=== PATIENT | male | born 1980 | race Caucasian/White ===

== ENCOUNTER 2016-11-10 19:12 | Emergency (ER) | payer BC ==
[2016-11-10 19:35] VITALS: BP 126/78
--- NOTE | 2016-11-10 19:51 | EDM.PDOC ---
ED HPI GENERAL MEDICAL PROBLEM - General Chief Complaint: Headache Stated Complaint: headaches Time Seen by Provider: 11/10/16 19:36 Source of Information: Reports: Patient, Family (spouse) History Limitations: Reports: No Limitations - History of Present Illness INITIAL COMMENTS - FREE TEXT/NARRATIVE: 35-year-old male presents to the ED with intermittent bouts of severe pain at the base of the skull more so on the left on the right off and on for the last 2 days. No known head or neck trauma. He has had similar type events before but never quite to this severity. Will radiate up from the base of the skull along the temporal aspects of both sides of his head causing a headache pressure discomfort. No associated nausea or vomiting. No prongs with his balance visual acuity etc. Onset: Sudden Onset Date: 11/08/16 Duration: Day(s): (Intermittent problems for the last 2 days.) Location: Reports: Head (Headache), Neck Quality: Reports: Ache, Pressure, Throbbing Severity: Moderate Improves with: Reports: Rest (Not moving) Worsens with: Reports: Movement (Certain movements particularly if he has to hold his breath or reef on something.) Context: Denies: Activity, Exercise, Lifting, Sick Contact, Trauma, Other Associated Symptoms: Reports: No Other Symptoms, Confusion, Headaches. 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: Reports: NSAIDS (Motrin), Other (see below) Other Treatments IN SCHOOL SUSPENSION AIDE: ibuprofen 1600 posterior head Pain Score (Numeric/FACES): 3 - Related Data Allergies Allergy/AdvReac Type Severity Reaction Status Date / Time adhesive tape Allergy Rash Verified 11/10/16 19:37 celecoxib Allergy Dizziness Verified 11/10/16 19:37 cephalexin Allergy Other Verified 11/10/16 19:37 lisinopril Allergy throat Verified 11/10/16 19:37 swelling rhubarb Allergy Nausea and Verified 11/10/16 19:37 Vomiting lotions Allergy Other Uncoded 11/10/16 19:37 Home Meds: Home Meds Cholecalciferol (Vitamin D3) [Vitamin D3] 1,000 unit PO DAILY 11/10/16 [History] Diclofenac Sodium [Voltaren] 50 mg PO TIDMEALS #21 tab.ec 11/10/16 [Rx] Metoprolol Succinate [Toprol XL] 100 mg PO DAILY 11/10/16 [History] Multivitamin [Daily Mulugeta] 1 each PO DAILY 11/10/16 [History] Polyethylene Glycol [Polyox Wsr-301] 1 gm PO DAILY 11/10/16 [History] Ranitidine [Zantac] 300 mg PO BID 11/10/16 [History] metroNIDAZOLE [Metronidazole] 45 gm TP BID PRN 11/10/16 [History] oxyCODONE HCl/Acetaminophen [Percocet 5-325 mg Tablet] 1 - 2 each PO Q4H PRN # 16 tablet 11/10/16 [Rx] predniSONE [Deltasone] 20 mg PO BID #10 tablet 11/10/16 [Rx] Past Medical History Cardiovascular History: Reports: Hypertension Gastrointestinal History: Reports: Gastritis, GERD Neurological History: Reports: Other (See Below) (Intermittent problems with headaches.) Endocrine/Metabolic History: Reports: Obesity/BMI 30+ Social & Family History - Tobacco Use Smoking Status *Q: Never Smoker - Recreational Drug Use Recreational Drug Use: No - Living Situation & Occupation Living situation: Reports: Occupation: Employed [employer] GENER[employer] - Review of Systems Review Of Systems: See Below Constitutional: Denies: Fever, Chills, Malaise, Weakness, Fatigue, Decreased Appetite, Weight Loss HEENT: Reports: No Symptoms, Other Respiratory: Reports: No Symptoms (Wears glasses when necessary.) Cardiovascular: Reports: No Symptoms Endocrine: Reports: No Symptoms GI/Abdominal: Reports: Constipation : Reports: No Symptoms Musculoskeletal: Reports: Neck Pain Skin: Reports: No Symptoms Neurological: Reports: No Symptoms Psychiatric: Reports: No Symptoms - Physical Exam Exam: See Below Exam Limited By: No Limitations General Appearance: Alert, WD/WN, No Apparent Distress Eye Exam: Bilateral Eye: Normal Inspection, PERRL Nose: Normal Inspection, Normal Mucosa Head Exam: Atraumatic, Normocephalic Neck: Normal Inspection, Tender Lateral (Particular tender over C4-5 and 6 facet joints on the left side with overlying muscle spasm.). No: Supple, Non- Tender, Full Range of Motion, Lymphadenopathy (L), Lymphadenopathy (R) Respiratory/Chest: No Respiratory Distress, Lungs Clear, Normal Breath Sounds, No Accessory Muscle Use Cardiovascular: Normal Peripheral Pulses, Regular Rate, Rhythm, No Edema, No JVD , No Murmur Neuro Exam (Abbreviated): Alert, Oriented, CN II-XII Intact, Normal Cognition, Normal Gait, Normal Reflexes, No Motor/Sensory Deficits, Other (Normal no pronator drift. Normal finger to nose and rapid alternating movements. Normal motor power and tone in all extremities.) Course - Vital Signs Last Recorded V/S: Last Vital Signs Temp 36.5 C 11/10/16 19:32 Pulse 62 11/10/16 19:32 Resp 18 11/10/16 19:32 BP 126/78 11/10/16 19:32 Pulse Ox 99 11/10/16 19:32 - Radiology Interpretation Free Text/Narrative:: 35-year-old male presents the ED with a intermittent severe spasm at the base of his neck causing a headache that radiates up the temporal aspect of both sides of his skull intermittent Lasix for the last 2 and half days. She did nausea or vomiting. But the headache and pain is bad enough that it makes him stop whatever he is doing. He has appreciated is worse with certain movements in particular a heavy lifting. On examination neuro exam is completely normal. Examination of his neck however shows paraspinal muscle spasm and marked tenderness over 74 5 and 6 facet joints on the left side. It appears he had a he has subluxation of these facets causing overlying muscle spasm and intermittent headaches at the base of the skull. It is the weekend he will not be able to control chiropractor likely until Sunday or Sunday. Treatment is Voltaren 50 mg 3 times daily for the next 7 days. Prednisone 20 mg with breakfast and supper for the next 5 days. Percocet tabs 07/05/24 one or 2 every 4- 6 hours no safe for pain relief. 16 tablet provided. Departure - Departure Time of Disposition: 19:43 Disposition: Home, Self-Care 01 Condition: Fair Clinical Impression: Bilateral headaches, Cervical (neck) region somatic dysfunction - Discharge Information Prescriptions: Diclofenac Sodium [Voltaren] 50 mg PO TIDMEALS #21 tab.ec oxyCODONE HCl/Acetaminophen [Percocet 5-325 mg Tablet] 1 - 2 each PO Q4H PRN # 16 tablet PRN Reason: pain relief. predniSONE [Deltasone] 20 mg PO BID #10 tablet Referrals: Maddy Champagne NP [Primary Care Provider] - Forms: ED Department Discharge Additional Instructions: Evaluation the emergency room tonight in regards to recurrent headaches at the base of the skull since November 08. Certain movements seem to bring on spasm and sudden onset of severe pain in the neck radiating up along the temporal aspects of both sides of her skull. No associated nausea or vomiting. Examination reveals normal neuro examination. However palpation of your neck reveals significant spasm and point tenderness over cervical for 5 and 6 SI joints which I think are causing intermittent muscle spasms and the pain. He sometimes also slip out of place during sleep. Over the weekend therefore treatment will should be anti-inflammatory. Use Voltaren 50 mg 3 times daily for the next 7 days. Deltasone 20 mg breakfast and supper for 5 days to relieve pain and inflammation. Percocet tablets 07/05/24 one or 2 every 4-6 hours for pain relief we'll not operating a motor vehicle or driving machinery etc. Ice or heat to the neck it's whatever feels better. Follow-up with chiropractor early next week when able.
== END 2016-11-10 19:57 | disposition home or self-care (01) ==
LOC: JD.ED 19:12
DX: M99.01 Segmental and somatic dysfunction of cervical region (principal); R51 Headache; K21.9 Gastro-esophageal reflux disease without esophagitis; I10 Essential (primary) hypertension; E66.9 Obesity, unspecified; Z88.8 Allergy status to other drugs, medicaments and biological substances; Z79.899 Other long term (current) drug therapy; Z68.42 Body mass index [BMI] 45.0-49.9, adult
CPT/HCPCS: 99284

== ENCOUNTER 2018-05-21 15:00 | Emergency (ER) | payer BC ==
--- NOTE | 2018-05-21 15:39 | EDM.PDOC ---
<Autumn Genao - Last Filed: 05/21/18 18:14> ED HPI GENERAL MEDICAL PROBLEM - General Chief Complaint: General Stated Complaint: HIGH BP Time Seen by Provider: 05/21/18 15:38 - History of Present Illness INITIAL COMMENTS - FREE TEXT/NARRATIVE: 37 y/o male presents to emergency room with chief complaints of feeling "like his blood pressure is screwed up." Patient reports further that he felt like his heart was racing, felt dizzy hands are shaking, tightness in his chest and slight shortness of breath. He denies any syncope change in LOC. Patient does report that he does have hypertension and takes metoprolol at night. Since this event patient reports that he feels better he has no more symptoms that he presented with. His PCP is Dr. Champagne. Onset: Today Onset Date: 05/21/18 Onset Time: 12:00 Improves with: Reports: None Worsens with: Reports: None Associated Symptoms: Reports: Chest Pain, Shortness of Breath, Other (Reports not feeling well feeling like his heart is racing tightness in his chest and shortness of breath. Patient reports he feels that his blood pressures.). Denies: Fever/Chills, Nausea/Vomiting, Syncope - Related Data Allergies Allergy/AdvReac Type Severity Reaction Status Date / Time adhesive tape Allergy Rash Verified 05/21/18 15:14 celecoxib Allergy Dizziness Verified 05/21/18 15:14 cephalexin Allergy Other Verified 05/21/18 15:14 lisinopril Allergy throat Verified 05/21/18 15:14 swelling rhubarb Allergy Nausea and Verified 05/21/18 15:14 Vomiting lotions Allergy Other Uncoded 11/10/16 19:37 Home Meds: Home Meds Cholecalciferol (Vitamin D3) [Vitamin D3] 1,000 unit PO DAILY 11/10/16 [History] Metoprolol Succinate [Toprol XL] 100 mg PO DAILY 11/10/16 [History] Multivitamin [Daily Mulugeta] 1 each PO DAILY 11/10/16 [History] Polyethylene Glycol [Polyox Wsr-301] 1 gm PO DAILY 11/10/16 [History] Ranitidine [Zantac] 300 mg PO BID 11/10/16 [History] ED ROS GENERAL - Review of Systems Review Of Systems: See Below Constitutional: Reports: No Symptoms HEENT: Reports: No Symptoms Respiratory: Reports: Shortness of Breath. Denies: Cough Cardiovascular: Reports: Other (Chest tightness, heart racing) Endocrine: Reports: No Symptoms GI/Abdominal: Reports: No Symptoms, Mucous in Stool : Reports: No Symptoms Musculoskeletal: Reports: No Symptoms Skin: Reports: No Symptoms Neurological: Reports: No Symptoms Psychiatric: Reports: No Symptoms Hematologic/Lymphatic: Reports: No Symptoms Immunologic: Reports: No Symptoms ED EXAM, GENERAL - Physical Exam Exam: See Below Exam Limited By: No Limitations General Appearance: Alert, WD/WN, No Apparent Distress Ears: Normal External Exam, Normal Canal, Hearing Grossly Normal, Normal TMs Throat/Mouth: Normal Inspection, Normal Lips, Normal Teeth, Normal Gums, Normal Oropharynx, Normal Voice, No Airway Compromise Head: Atraumatic, Normocephalic Neck: Normal Inspection, Supple, Non-Tender, Full Range of Motion Respiratory/Chest: No Respiratory Distress, Lungs Clear, Normal Breath Sounds, No Accessory Muscle Use, Chest Non-Tender Cardiovascular: Normal Peripheral Pulses, Regular Rate, Rhythm, No Edema, No Gallop, No JVD, No Murmur, No Rub Extremities: Normal Inspection, Normal Range of Motion, Non-Tender, No Pedal Edema, Normal Capillary Refill Neurological: Alert, Oriented, CN II-XII Intact, Normal Cognition, Normal Gait, Normal Reflexes, No Motor/Sensory Deficits Psychiatric: Normal Affect, Normal Mood Skin Exam: Warm, Dry, Normal Color, No Rash, Other (left middle finger avulsion , with irregular laceration noted, neurovascularly intact. ) Lymphatic: No Adenopathy ED GENERAL MEDICAL PROCEDURES - Laceration/Wound Repair Left Middle Medial Digit - 3rd (Middle) Appearance: Subcutaneous, Mildly Contaminated Distal NVT: Neuro & Vascular Intact Anesthetic Type: Digital Local Anesthesia - Bupivicaine (Marcaine): 0.5% Plain Local Anesthetic Volume: 3cc Skin Prep: Chlorhexidine (Hibiciens), Providone-Iodine (Betadine) Exploration/Debridement/Repair: Wound Explored, No Foreign Material Found Closed with: Sutures Suture Size: 4-0 # of Sutures: 8 Suture Type: Prolene Sterile Dressing Applied: Nurse Tetanus Status Addressed: Yes Complications: No Progress/Comments: patient tolerated procedure well. EKG INTERPRETATION EKG Date: 05/21/18 Time: 17:15 Rhythm: NSR [place]: Normal P-Wave: Present QRS: Normal ST-T: Normal QT: Normal Course - Vital Signs Last Recorded V/S: Last Vital Signs Temp 36.5 C 05/21/18 18:30 Pulse 80 05/21/18 18:30 Resp 16 05/21/18 18:30 BP 139/83 05/21/18 18:30 Pulse Ox 95 05/21/18 18:30 - Orders/Labs/Meds Orders: Active Orders 24 hr Category Date Time Status EKG Documentation Completion [RC] STAT Care 05/21/18 16:50 Active Holter Monitor 48 Hours [RC] .PRN Care 05/21/18 17:50 Active Chest 1V Frontal [CR] Stat Exams 05/21/18 16:50 Taken Labs: Laboratory Tests 05/21/18 05/21/18 Range/Units 16:09 16:09 WBC 4.49 (4.23-9.07) K/mm3 RBC 4.50 L (4.63-6.08) M/mm3 Hgb 13.2 L (13.7-17.5) gm/L Hct 40.7 (40.1-51.0) % MCV 90.4 (79.0-92.2) fl MCH 29.3 (25.7-32.2) pg MCHC 32.4 (32.2-35.5) g/dl RDW Std Deviation 41.3 (35.1-43.9) fL Plt Count 166 (163-337) K/mm3 MPV 10.6 (9.4-12.3) fl Neut % (Auto) 63.7 (34.0-67.9) % Lymph % (Auto) 25.6 (21.8-53.1) % Limestone % (Auto) 8.2 (5.3-12.2) % Eos % (Auto) 1.6 (0.8-7.0) Baso % (Auto) 0.7 (0.1-1.2) % Neut # (Auto) 2.86 (1.78-5.38) K/mm3 Lymph # (Auto) 1.15 L (1.32-3.57) K/mm3 Limestone # (Auto) 0.37 (0.30-0.82) K/mm3 Eos # (Auto) 0.07 (0.04-0.54) K/mm3 Baso # (Auto) 0.03 (0.01-0.08) K/mm3 Sodium 142 (136-145) mEq/L Potassium 3.8 (3.5-5.1) mEq/L Chloride 104 (98-107) mEq/L Carbon Dioxide 30 (21-32) mEq/L Anion Gap 11.8 (5-15) BUN 16 (7-18) mg/dL Creatinine 1.3 (0.7-1.3) mg/dL Est Cr Clr Drug Dosing 73.81 mL/min Estimated GFR (MDRD) > 60 (>60) mL/min BUN/Creatinine Ratio 12.3 L (14-18) Glucose 116 H (74-106) mg/dL Calcium 9.2 (8.5-10.1) mg/dL Magnesium 2.1 (1.8-2.4) mg/dl Total Bilirubin 0.3 (0.2-1.0) mg/dL AST 21 (15-37) U/L ALT 50 (16-63) U/L Alkaline Phosphatase 85 (46-116) U/L Total Protein 7.5 (6.4-8.2) g/dl Albumin 3.8 (3.4-5.0) g/dl Globulin 3.7 gm/dL Albumin/Globulin Ratio 1.0 (1-2) TSH 3rd Generation 1.051 (0.358-3.74) uIU/mL - Re-Assessments/Exams Free Text/Narrative Re-Assessment/Exam: 05/21/18 17:46 His WBC was 4.49 RBC 5.0 H&H 13.2 and 40.7. Sodium 142 potassium 3.916 creatinine 1.3 glucose slightly elevated at 116 magnesium normal at 2.1. TSH normal at 1.051, AST 21 ALT 50. EKG reveals normal sinus rhythm, rate 82. No ectopy. His preliminary chest x-ray reveals right sanjay-phrenic slight elevation, otherwise, no acute findings. If there is a change after radiologist rates it I will contact patient. I will discharge home 48 hour Holter monitor. I will instructed to follow up with his PCP next Sunday. If his HM is normal I would recommend a outpatient stress test. Instructed to return to the emergency room for any new or acutely worsening symptoms. Departure - Departure Time of Disposition: 17:47 Disposition: Home, Self-Care 01 Clinical Impression: Heart palpitations - Discharge Information *PRESCRIPTION DRUG MONITORING PROGRAM REVIEWED*: Not Applicable *COPY OF PRESCRIPTION DRUG MONITORING REPORT IN PATIENT TIM: Not Applicable Instructions: Holter Monitoring Referrals: Maddy Champagne NP [Primary Care Provider] - Forms: ED Department Discharge Additional Instructions: You have been diagnosis with atypical chest pain and palpitations. You are to wear a Holter monitor for 48 hours and follow-up with your PCP Dr. Champagne on Sunday of next week. If you're Holter monitor does not reveal any abnormalities I would recommend a follow-up outpatient cardiac stress test. Return to the emergency room for any new or acutely worsening symptoms. <Sixto Bland - Last Filed: 05/21/18 19:50> ED HPI GENERAL MEDICAL PROBLEM - General Source of Information: Reports: Patient History Limitations: Reports: No Limitations Past Medical History - Past Health History Medical/Surgical History: Denies Medical/Surgical History Cardiovascular History: Reports: Hypertension Gastrointestinal History: Reports: Gastritis, GERD Neurological History: Reports: Other (See Below) (Intermittent problems with headaches.) Endocrine/Metabolic History: Reports: Obesity/BMI 30+ - Past Surgical History GI Surgical History: Reports: Cholecystectomy Social & Family History - Family History Family Medical History: Noncontributory - Tobacco Use Smoking Status *Q: Former Smoker Used Tobacco, but Quit: Yes Month/Year Tobacco Last Used: 10 - Caffeine Use Caffeine Use: Reports: Coffee - Recreational Drug Use Recreational Drug Use: No - Living Situation & Occupation Living situation: Reports: Occupation: Employed EKG INTERPRETATION P-Wave: Absent (Consider right atrial hypertrophy) QRS: Other (Q-wave in V1 which is nonspecific) Course - Orders/Labs/Meds Orders: Active Orders 24 hr Category Date Time Status EKG Documentation Completion [RC] STAT Care 05/21/18 16:50 Active Holter Monitor 48 Hours [RC] .PRN Care 05/21/18 17:50 Active Chest 1V Frontal [CR] Stat Exams 05/21/18 16:50 Taken Labs: Laboratory Tests 05/21/18 05/21/18 Range/Units 16:09 16:09 WBC 4.49 (4.23-9.07) K/mm3 RBC 4.50 L (4.63-6.08) M/mm3 Hgb 13.2 L (13.7-17.5) gm/L Hct 40.7 (40.1-51.0) % MCV 90.4 (79.0-92.2) fl MCH 29.3 (25.7-32.2) pg MCHC 32.4 (32.2-35.5) g/dl RDW Std Deviation 41.3 (35.1-43.9) fL Plt Count 166 (163-337) K/mm3 MPV 10.6 (9.4-12.3) fl Neut % (Auto) 63.7 (34.0-67.9) % Lymph % (Auto) 25.6 (21.8-53.1) % [place]estone % (Auto) 8.2 (5.3-12.2) % Eos % (Auto) 1.6 (0.8-7.0) Baso % (Auto) 0.7 (0.1-1.2) % Neut # (Auto) 2.86 (1.78-5.38) K/mm3 Lymph # (Auto) 1.15 L (1.32-3.57) K/mm3 [place] # (Auto) 0.37 (0.30-0.82) K/mm3 Eos # (Auto) 0.07 (0.04-0.54) K/mm3 Baso # (Auto) 0.03 (0.01-0.08) K/mm3 Sodium 142 (136-145) mEq/L Potassium 3.8 (3.5-5.1) mEq/L Chloride 104 (98-107) mEq/L Carbon Dioxide 30 (21-32) mEq/L Anion Gap 11.8 (5-15) BUN 16 (7-18) mg/dL Creatinine 1.3 (0.7-1.3) mg/dL Est Cr Clr Drug Dosing 73.81 mL/min Estimated GFR (MDRD) > 60 (>60) mL/min BUN/Creatinine Ratio 12.3 L (14-18) Glucose 116 H (74-106) mg/dL Calcium 9.2 (8.5-10.1) mg/dL Magnesium 2.1 (1.8-2.4) mg/dl Total Bilirubin 0.3 (0.2-1.0) mg/dL AST 21 (15-37) U/L ALT 50 (16-63) U/L Alkaline Phosphatase 85 (46-116) U/L Total Protein 7.5 (6.4-8.2) g/dl Albumin 3.8 (3.4-5.0) g/dl Globulin 3.7 gm/dL Albumin/Globulin Ratio 1.0 (1-2) TSH 3rd Generation 1.051 (0.358-3.74) uIU/mL - Radiology Interpretation Free Text/Narrative:: 37-year-old male attends the ED with reported palpitations yesterday and again today. Is concerned that his blood pressure is running too high. Eyes any use of stimulants such as excessive amount of caffeine alcohol or energy drinks or excessive use of caffeine. In the ED his blood pressure is only slightly elevated when he came into the ED at 145/84 and it quickly came down to 128/80. ECG is essentially normal with a Q-wave in V1 which is nonspecific. Questionable right atrial hypertrophy. CXR reviewed and is within normal limits for portable technique. The portable technique suggest mild cardiomegaly and poor inspirations which magnifies the vasculature suggesting diffuse vascular congestion. However this is not apparent clinically on exam. Case discussed and shared with ISIAH Genao and we decided that we will place him on a 48 hour Holter monitor to see if there is any significant arrhythmias. reassured his blood pressure is well-controlled this time and does not merit any change in blood pressure medications. Lab tests including thyroid function were all completely normal. She will follow-up with his primary care provider about Sunday next week for Holter monitor results.
[2018-05-21 18:45] VITALS: BP 139/83
--- NOTE | 2018-05-22 08:16 | CR ---
Chest: Portable view of the chest was obtained. Comparison: Previous chest x-ray of 12/28/14. Heart size appears within normal limits for portable technique. Upper mediastinum also felt to be within normal limits for portable technique. Lungs are clear. No acute parenchymal change is seen. Bony structures are grossly intact. Impression: 1. Nothing acute is appreciated on portable chest x-ray. Diagnostic code #1
== END 2018-05-21 18:48 | disposition home or self-care (01) ==
LOC: JD.ED 15:00
DX: R00.2 Palpitations (principal); Z91.09 Other allergy status, other than to drugs and biological substances; Z88.1 Allergy status to other antibiotic agents; Z88.8 Allergy status to other drugs, medicaments and biological substances; Z79.899 Other long term (current) drug therapy
CPT/HCPCS: 36415; 71045; 71045-26; 80053; 83735; 84443; 85025; 93005; 99285-25

== ENCOUNTER 2019-10-10 18:22 | Emergency (ER) | payer BC ==
[2019-10-10 18:40] VITALS: BP 150/77; PULSE 81
[2019-10-10] MEDS ORDERED: Ondansetron 4 MG/2 ML SDV IVPUSH ONE (18:42)
[2019-10-10] MEDS ORDERED: Sodium Chloride 0.9% 1,000 ML IV SCH (18:45)
[2019-10-10] MEDS: Sodium Chloride 0.9% 10 ML Syringe FLUSH PRN ×2 (19:00→21:27)
--- NOTE | 2019-10-10 19:02 | EDM.PDOC ---
ED HPI GENERAL MEDICAL PROBLEM - General Chief Complaint: Gastrointestinal Problem Stated Complaint: blood in stool abdominal pain Time Seen by Provider: 10/10/19 18:38 Source of Information: Reports: Patient, RN Notes Reviewed History Limitations: Reports: No Limitations - History of Present Illness INITIAL COMMENTS - FREE TEXT/NARRATIVE: Patient is a 38-year-old male who presents to the ED for the evaluation of his mid abdomen pain and blood in his stool. Patient notes that for the past day or 2, he has been having some mid abdomen pain, that associate with some mild elyssa sea. He was more alarmed today, as he passed what he called a "alarmingly large amount of blood" in his stool. He states that it filled the toilet bowl. He noted this to be maroon-red in color. States he still feeling nauseous but has not had any vomiting, he is not having any diarrhea, but states he has had his gallbladder taken out so he commonly has loose stools. He further denies any lightheadedness or dizziness, he is not complaining of any fever/chills, cough/shortness of breath, he is not known to have any hemorrhoids. He has never had issues like this prior to this. Patient notes that he still retains his appendix. He does take a blood pressure medication, and MiraLAX on a regular basis, his primary care provider is Maddy Champagne. He does note that his father has a history of diverticulitis, and he states that he was eating quite a bit of sunflower seeds yesterday, and is wondering if this is not what caused the issue. He also states that he had one bowel movement, that felt like a "porcupine" coming out. Denies alcohol use and current NSAID use. Abdominal Pain Score (Numeric/FACES): 2 - Related Data Allergies Allergy/AdvReac Type Severity Reaction Status Date / Time adhesive tape Allergy Rash Verified 10/10/19 18:35 celecoxib Allergy Dizziness Verified 10/10/19 18:35 cephalexin Allergy Other Verified 10/10/19 18:35 lisinopril Allergy throat Verified 10/10/19 18:35 swelling rhubarb Allergy Nausea and Verified 10/10/19 18:35 Vomiting lotions Allergy Other Uncoded 10/10/19 18:35 Home Meds: Home Meds Metoprolol Succinate [Toprol XL] 100 mg PO DAILY 11/10/16 [History] Polyethylene Glycol [Polyox Wsr-301] 1 gm PO DAILY 11/10/16 [History] Ondansetron [Zofran ODT] 4 mg PO Q8H PRN #15 tab.dis 10/10/19 [Rx] Past Medical History Cardiovascular History: Reports: Hypertension Gastrointestinal History: Reports: Gastritis, GERD Neurological History: Reports: Other (See Below) (Intermittent problems with headaches.) Psychiatric History: Reports: Anxiety, Depression Endocrine/Metabolic History: Reports: Obesity/BMI 30+ - Past Surgical History GI Surgical History: Reports: Cholecystectomy Social & Family History - Family History Family Medical History: Noncontributory - Tobacco Use Smoking Status *Q: Never Smoker - Caffeine Use Caffeine Use: Reports: Coffee - Recreational Drug Use Recreational Drug Use: No - Living Situation & Occupation Living situation: Reports: Occupation: Employed ED ROS GENERAL - Review of Systems Review Of Systems: Comprehensive ROS is negative, except as noted in HPI. ED EXAM, GI/ABD - Physical Exam Exam: See Below Exam Limited By: No Limitations General Appearance: Alert, WD/WN, No Apparent Distress Eyes: Bilateral: Normal Appearance Throat/Mouth: Normal Inspection, Normal Lips, Normal Teeth, Normal Gums, Normal Oropharynx, Normal Voice, No Airway Compromise Head: Atraumatic, Normocephalic Neck: Normal Inspection Respiratory/Chest: No Respiratory Distress, Lungs Clear, Normal Breath Sounds, No Accessory Muscle Use, Chest Non-Tender Cardiovascular: Normal Peripheral Pulses, Regular Rate, Rhythm, No Murmur GI/Abdominal Exam: Normal Bowel Sounds, Soft, Non-Tender, No Distention, No Mass Rectal (Males) Exam: Normal Exam, Normal Rectal Tone, Bloody Stool, Heme + Stool (grossly positive and hemoccult positive on exam). No: Hemorrhoids, Mass, Tenderness Extremities: Normal Inspection, Normal Capillary Refill Neurological: Alert, Oriented, Normal Cognition, No Motor/Sensory Deficits Psychiatric: Normal Affect, Normal Mood Skin Exam: Warm, Dry, Intact, Normal Color, No Rash Course - Vital Signs Last Recorded V/S: Last Vital Signs Temp 97.3 F 10/10/19 18:37 Pulse 81 10/10/19 18:37 Resp 20 10/10/19 18:37 BP 150/77 H 10/10/19 18:37 Pulse Ox 99 10/10/19 18:37 - Orders/Labs/Meds Orders: Active Orders 24 hr Category Date Time Status Peripheral IV Care [RC] . DIRECTED Care 10/10/19 18:43 Active Sodium Chloride 0.9% [Normal Saline] 1,000 ml Med 10/10/19 18:45 Active IV ASDIRECTED Sodium Chloride 0.9% [Saline Flush] Med 10/10/19 18:43 Active 10 ml FLUSH ASDIRECTED PRN Peripheral IV Insertion Adult [OM.PC] Routine Oth 10/10/19 18:43 Ordered Medication Orders Sodium Chloride (Normal Saline) 1,000 mls @ 999 mls/hr IV ASDIRECTED VERN Last Admin: 10/10/19 19:07 Dose: 999 mls/hr Documented by: [place] Sodium Chloride (Saline Flush) 10 ml FLUSH ASDIRECTED PRN PRN Reason: Keep Vein Open Last Admin: 10/10/19 21:27 Dose: 10 ml Documented by: Admin: 10/10/19 19:00 Dose: 10 ml Documented by: [place] Labs: Laboratory Tests 10/10/19 10/10/19 10/10/19 Range/Units 19:00 19:00 20:10 WBC 4.43 (4.23-9.07) K/mm3 RBC 4.91 (4.63-6.08) M/mm3 Hgb 14.5 (13.7-17.5) gm/dl Hct 45.4 (40.1-51.0) % MCV 92.5 H (79.0-92.2) fl MCH 29.5 (25.7-32.2) pg MCHC 31.9 L (32.2-35.5) g/dl RDW Std Deviation 43.1 (35.1-43.9) fL Plt Count 179 (163-337) K/mm3 MPV 11.0 (9.4-12.3) fl Neutrophils % (Manual) 54 (40-60) % Band Neutrophils % 1 (0-10) % Lymphocytes % (Manual) 37 (20-40) % Atypical Lymphs % 0 % Monocytes % (Manual) 4 (2-10) % Eosinophils % (Manual) 4 (0.8-7.0) % Basophils % (Manual) 0 L (0.2-1.2) Platelet Estimate Adequate RBC Morph Comment Normal Sodium 139 (136-145) mEq/L Potassium 3.8 (3.5-5.1) mEq/L Chloride 102 (98-107) mEq/L Carbon Dioxide 30 (21-32) mEq/L Anion Gap 10.8 (5-15) BUN 17 (7-18) mg/dL Creatinine 1.1 (0.7-1.3) mg/dL Est Cr Clr Drug Dosing 92.17 mL/min Estimated GFR (MDRD) > 60 (>60) mL/min BUN/Creatinine Ratio 15.5 (14-18) Glucose 100 (74-106) mg/dL Calcium 9.4 (8.5-10.1) mg/dL Total Bilirubin 0.4 (0.2-1.0) mg/dL AST 24 (15-37) U/L ALT 55 (16-63) U/L Alkaline Phosphatase 76 (46-116) U/L Total Protein 7.8 (6.4-8.2) g/dl Albumin 4.0 (3.4-5.0) g/dl Globulin 3.8 gm/dL Albumin/Globulin Ratio 1.1 (1-2) Lipase 195 (73-393) U/L Urine Color Yellow (Yellow) Urine Appearance Clear (Clear) Urine pH 6.5 (5.0-8.0) Ur Specific [place] 1.020 (1.005-1.030) Urine Protein Negative (Negative) Urine Glucose (UA) Negative (Negative) Urine Ketones Negative (Negative) Urine Occult Blood Negative (Negative) Urine Nitrite Negative (Negative) Urine Bilirubin Negative (Negative) Urine Urobilinogen 0.2 (0.2-1.0) Ur Leukocyte Esterase Negative (Negative) Urine RBC 0-5 (0-5) /hpf Urine WBC 0-5 (0-5) /hpf Ur Squamous Epith Cells Not seen (0-5) /hpf Urine Bacteria Occasional (FEW) /hpf Urine Mucus Not seen (FEW) /hpf Meds: Medications Generic Name Dose Route Start Last Admin Trade Name Freq PRN Reason Stop Dose Admin Sodium Chloride 1,000 mls @ 999 mls/hr 10/10/19 18:45 10/10/19 19:07 Normal Saline IV 999 mls/hr ASDIRECTED VERN Administration Sodium Chloride 10 ml 10/10/19 18:43 08/07/20 21:27 Saline Flush FLUSH 10 ml ASDIRECTED PRN Administration Keep Vein Open Discontinued Medications Generic Name Dose Route Start Last Admin Trade Name Spenser PRN Reason Stop Dose Admin Iopamidol 100 ml 10/10/19 21:28 10/10/19 21:29 Isovue-300 (61%) IVPUSH 10/10/19 21:29 100 ml ONETIME ONE Administration Ondansetron HCl 4 mg 10/10/19 18:42 10/10/19 19:08 Zofran IVPUSH 10/10/19 18:43 4 mg ONETIME ONE Administration - Re-Assessments/Exams Free Text/Narrative Re-Assessment/Exam: 10/10/19 19:02 Patient presents to the ED for his generalized abdomen discomfort, and bloody stool x1. Basic labs will be obtained, along with IV fluids and Zofran for nausea management. Abdomen pelvis CT with IV and oral contrast will also be given. 10/10/19 21:37 Patient's laboratory evaluation is unremarkable. CT also demonstrates no focal abnormalities, there is a small fat-containing umbilical hernia, but does not appear to be incarcerated, there is no inflammatory changes within the bowel or otherwise to suggest diverticulitis. At this time there is no great answer as to why the patient had a maroon-red stool. I did go over his case with Dr. Casanova as he was in the ER for a different case, and he states because the patient's BMI is over 50 he would likely be referred to [place] anyways. I did contact [facility] in [place] and was in contact with Dr. Hobbs, GI specialist, he states that if this is self-limiting they can follow-up outpatient nieto, and the clinic she will call him next week to schedule an appointment. I will tell the patient that if he has any worsening symptoms he is to report immediately back to the ER for further work-up and possible transfer for management. Departure - Departure Time of Disposition: 21:38 Disposition: Home, Self-Care 01 Condition: Good Clinical Impression: Blood present in stool - Discharge Information *PRESCRIPTION DRUG MONITORING PROGRAM REVIEWED*: No *COPY OF PRESCRIPTION DRUG MONITORING REPORT IN PATIENT TIM: No Instructions: Gastrointestinal Bleeding, [id number] Referrals: Maddy Champagne NP [Primary Care Provider] - Forms: ED Department Discharge Additional Instructions: You were evaluated in the ER today regarding the blood in your stool. Work-up and CT done at today's visit were unremarkable, and show no focal abnormalities that would give us a reason as to why you had a bloody stool. You would likely require colonoscopy for further evaluation, as your blood pressure is okay, and hemoglobin is within normal limits, this is appropriate to try on an outpatient basis. Your case was discussed with Dr. Hobbs at [facility] in [place] for further management, he states that his clinic will call you next week to schedule an appointment, but if your symptoms change or worsen, that you should present directly to the ER for more urgent management. Worsening symptoms would be increased bloody stools, or if they changed more to a bright red color. If you begin to get lightheaded or dizzy, or if you are not able to tolerate any food or fluids, or if you are not passing stool at all. You were given a prescription for Zofran, for nausea, please use 1 tab dissolvable under your tongue every 8 hours as needed for further nausea. Again please return to the ER at any time if your symptoms change or worsen over the weekend, otherwise please await the call from Dr. Hobbs's office for further management and work-up. Sepsis Event Note (ED) - Evaluation Sepsis Screening Result: No Definite Risk - Focused Exam Vital Signs: Vital Signs Temp Pulse Resp BP Pulse Ox 10/10/19 18:37 97.3 F 81 20 150/77 H 99 - My Orders Last 24 Hours: My Active Orders 10/10/19 18:43 Peripheral IV Care [RC] . DIRECTED Sodium Chloride 0.9% [Saline Flush] 10 ml FLUSH ASDIRECTED PRN Peripheral IV Insertion Adult [OM.PC] Routine 10/10/19 18:45 Sodium Chloride 0.9% [Normal Saline] 1,000 ml IV ASDIRECTED - Assessment/Plan Last 24 Hours: My Active Orders 10/10/19 18:43 Peripheral IV Care [RC] . DIRECTED Sodium Chloride 0.9% [Saline Flush] 10 ml FLUSH ASDIRECTED PRN Peripheral IV Insertion Adult [OM.PC] Routine 10/10/19 18:45 Sodium Chloride 0.9% [Normal Saline] 1,000 ml IV ASDIRECTED
--- NOTE | 2019-10-10 21:03 | CT ---
CT abdomen and pelvis Technique: Multiple axial sections were obtained from above the dome of the diaphragm inferiorly through the pubic symphysis. Intravenous and oral contrast was utilized. Delayed images were also obtained through the pelvis. Reconstructed coronal and sagittal images were obtained. Comparison: No prior abdominal imaging is available. Findings: Visualized lung bases show nothing acute. Liver contains no focal parenchymal abnormality. Surgical clips are noted from prior cholecystectomy. Spleen appears within normal limits. Adrenal glands show no nodule. Pancreas appears within normal limits. Kidneys show symmetric contrast enhancement without hydronephrosis or mass. Aorta shows no aneurysm. No retroperitoneal adenopathy or mesenteric abnormalities are seen. Appendix is seen which is normal in size. No inflammatory change or free fluid is seen within the abdomen or within the pelvis. Small fat-containing umbilical hernia is noted. Delayed images shows contrast within the distal ureters as well as contrast being seen within the bladder. Bone window settings were reviewed. No acute osseous finding is appreciated. Impression: 1. Nothing acute is appreciated on CT study of the abdomen and pelvis. Diagnostic code #2 This report was dictated in MDT
[2019-10-10] MEDS ORDERED: Iopamidol 612 MG/ML 100 ML Bottle IVPUSH ONE (21:28)
== END 2019-10-10 21:55 | disposition home or self-care (01) ==
LOC: JD.ED 18:22
DX: K92.1 Melena (principal); I10 Essential (primary) hypertension; E66.9 Obesity, unspecified; Z88.1 Allergy status to other antibiotic agents; Z91.09 Other allergy status, other than to drugs and biological substances; Z88.8 Allergy status to other drugs, medicaments and biological substances; Z79.899 Other long term (current) drug therapy; Z90.49 Acquired absence of other specified parts of digestive tract; Z68.43 Body mass index [BMI] 50.0-59.9, adult
CPT/HCPCS: 36415; 74177; 80053; 81001; 83690; 85007; 85027; 99285; J2405; J7030; Q9967; 99284

== ENCOUNTER 2020-12-23 11:46 | Emergency (ER) | payer BC ==
[2020-12-23 12:04] VITALS: BP 136/82; PULSE 75
--- NOTE | 2020-12-23 12:24 | EDM.PDOC ---
ED HPI GENERAL MEDICAL PROBLEM - General Chief Complaint: Neurological Problem Stated Complaint: TINGLING ON RIGHT SIDE Time Seen by Provider: 12/23/20 12:13 Source of Information: Reports: Patient History Limitations: Reports: No Limitations - History of Present Illness INITIAL COMMENTS - FREE TEXT/NARRATIVE: 40-year-old male presents to the ED with reported numbness and tingling on a intermittent basis primarily in his right upper extremity from wrist to shoulder. He has a difficult time describing his numbness and tingling gets more painful and there is some suggestion that the hand actually blanched or changed color suggesting Raynaud's phenomenon. His hands and feet are cold already because of being on metoprolol long-term. However there is never had pain or weakness or tremor like it did this morning. No facial involvement and has not really appreciated numbness and tingling in his right leg. He has no problems walking or walking up stairs. He does not feel off balance. No visual acuity changes. Sinuses have been congested over the last few days particularly last evening. He denies headache at this time although he did have a headache this morning. No associated nausea or vomiting. He is primary hypertension has been on medication for couple of years. Blood pressures been well controlled. He denies using any energy drinks or any fad diets. Denies feeling dizzy or lightheaded. 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 Denies: Activity, Exercise, Lifting, Sick Contact, Trauma Associated Symptoms: Reports: No Other Symptoms. 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) (Took nothing for headache this morning) - Related Data Allergies Allergy/AdvReac Type Severity Reaction Status Date / Time adhesive tape Allergy Rash Verified 12/23/20 12:03 celecoxib Allergy Dizziness Verified 12/23/20 12:03 cephalexin Allergy Other Verified 12/23/20 12:03 lisinopril Allergy throat Verified 12/23/20 12:03 swelling rhubarb Allergy Nausea and Verified 12/23/20 12:03 Vomiting lotions Allergy Other Uncoded 12/23/20 12:03 Home Meds: Home Meds Metoprolol Succinate [Toprol XL] 100 mg PO DAILY 11/10/16 [History] Past Medical History Cardiovascular History: Reports: Hypertension Gastrointestinal History: Reports: Gastritis, GERD Neurological History: Reports: Other (See Below) Psychiatric History: Reports: Anxiety, Depression Endocrine/Metabolic History: Reports: Obesity/BMI 30+ - Past Surgical History GI Surgical History: Reports: Cholecystectomy Social & Family History - Family History Family Medical History: No Pertinent Family History - Tobacco Use Tobacco Use Status *Q: Never Tobacco User Second Hand Smoke Exposure: No - Caffeine Use Caffeine Use: Reports: Coffee - Recreational Drug Use Recreational Drug Use: No - Living Situation & Occupation Living situation: Reports: Occupation: Employed ED ROS GENERAL - Review of Systems Review Of Systems: See Below Constitutional: Reports: Malaise, Fatigue. Denies: Fever, Chills, Decreased Appetite, Weight Loss HEENT: Reports: No Symptoms Respiratory: Reports: No Symptoms Cardiovascular: Reports: Blood Pressure Problem Endocrine: Reports: Other (Morbid obesity) GI/Abdominal: Reports: Diarrhea (Chronic diarrhea since having gallbladder removed.) : Reports: No Symptoms Musculoskeletal: Reports: Back Pain (Knees hips neck and shoulders at times.), Joint Pain Skin: Reports: No Symptoms ( Occasional low back pain) Neurological: Reports: Headache, Paresthesia (Paresthesias primarily right upper extremity as chief complaint today. Been present off and on for the last 2 days.). Denies: Weakness Psychiatric: Reports: No Symptoms Hematologic/Lymphatic: Reports: No Symptoms Immunologic: Reports: No Symptoms ED EXAM, NEURO - Physical Exam Exam: See Below Exam Limited By: No Limitations General Appearance: Alert, WD/WN, Anxious, Other (Minimally anxious. Temperature is 36.4 degrees heart rate 75 sinus respiratory 16 with O2 sats of 98% room air. BP 136/82) Eye Exam: Bilateral Eye: Normal Inspection (No blepharal pallor or scleral icterus), PERRL Ears: Normal TMs Nose: Other (Does have evidence of inflammation of the nasal mucosa bilaterally no nasal polyps.) Throat/Mouth: Normal Inspection, Normal Lips, Normal Oropharynx, Other Head Exam: Atraumatic (Uvula is in the midline), Normocephalic Neck: Normal Inspection, Supple, Non-Tender, Full Range of Motion. No: Carotid Bruit, Lymphadenopathy (L), Lymphadenopathy (R) Respiratory/Chest: No Respiratory Distress, Lungs Clear, Normal Breath Sounds, No Accessory Muscle Use Cardiovascular: Normal Peripheral Pulses, Regular Rate, Rhythm, No Gallop, No Murmur, No Rub. No: No Edema GI/Abdominal: Normal Bowel Sounds, Soft, Non-Tender, No Organomegaly, Pelvis Stable, Other (Abdominal girth limits ability to palpate solid organs. Scars present from laparoscopic cholecystectomy) Neurological: Alert, Normal Mood/Affect, Normal Dorsiflexion, CN II-XII Intact, Normal Plantar Flexion, Normal Gait, Normal Reflexes, No Motor/Sensory Deficits, Oriented x 3, Other (No pronator drift. Mildly positive Tinel's sign.). No: Abnormal Finger to Nose DTR: 1+: Bicep (R), Bicep (L), Patella (R), Patella (L), 2+: Achilles (R), Achilles (L) Back Exam: Normal Inspection, Full Range of Motion. No: CVA Tenderness (L), CVA Tenderness (R) Extremities: Normal Inspection, Normal Range of Motion, Pedal Edema Psychiatric: Normal Affect, Normal Mood (1+ pitting edema both lower extremities around the ankles) Skin Exam: Warm, Dry, Intact, Normal Color, No Rash Course - Vital Signs Last Recorded V/S: Last Vital Signs Temp 36.4 C 12/23/20 12:01 Pulse 75 12/23/20 12:01 Resp 16 12/23/20 12:01 BP 136/82 12/23/20 12:01 Pulse Ox 98 12/23/20 12:01 - Orders/Labs/Meds Labs: Laboratory Tests 12/23/20 12/23/20 12/23/20 Range/Units 12:42 12:42 12:42 WBC 4.18 L (4.23-9.07) K/mm3 RBC 4.66 (4.63-6.08) M/mm3 Hgb 14.0 (13.7-17.5) gm/dl Hct 43.9 (40.1-51.0) % MCV 94.2 H (79.0-92.2) fl MCH 30.0 (25.7-32.2) pg MCHC 31.9 L (32.2-35.5) g/dl RDW Std Deviation 44.6 H (35.1-43.9) fL Plt Count 171 (163-337) K/mm3 MPV 10.3 (9.4-12.3) fl Neut % (Auto) 72.1 H (34.0-67.9) % Lymph % (Auto) 16.0 L (21.8-53.1) % [place] % (Auto) 9.3 (5.3-12.2) % Eos % (Auto) 1.4 (0.8-7.0) Baso % (Auto) 0.7 (0.1-1.2) % Neut # (Auto) 3.01 (1.78-5.38) K/mm3 Lymph # (Auto) 0.67 L (1.32-3.57) K/mm3 [place] # (Auto) 0.39 (0.30-0.82) K/mm3 Eos # (Auto) 0.06 (0.04-0.54) K/mm3 Baso # (Auto) 0.03 (0.01-0.08) K/mm3 Sodium 136 (136-145) mEq/L Potassium 4.2 (3.5-5.1) mEq/L Chloride 102 (98-107) mEq/L Carbon Dioxide 29 (21-32) mEq/L Anion Gap 9.2 (5-15) BUN 16 (7-18) mg/dL Creatinine 1.0 (0.7-1.3) mg/dL Est Cr Clr Drug Dosing 89.97 mL/min Estimated GFR (MDRD) > 60 (>60) mL/min BUN/Creatinine Ratio 16.0 (14-18) Glucose 104 H (70-99) mg/dL Hemoglobin A1c 5.5 ( - 5.6) % Calcium 9.2 (8.5-10.1) mg/dL Magnesium 2.1 (1.8-2.4) mg/dL Total Bilirubin 0.6 (0.2-1.0) mg/dL AST 24 (15-37) U/L ALT 45 (16-63) U/L Alkaline Phosphatase 74 (46-116) U/L C-Reactive Protein 0.3 (<1.0) mg/dL Total Protein 7.3 (6.4-8.2) g/dl Albumin 4.0 (3.4-5.0) g/dl Globulin 3.3 gm/dL Albumin/Globulin Ratio 1.2 (1-2) - Radiology Interpretation Free Text/Narrative:: 40-year-old male presents to the ED primarily due to experiencing paresthesias which she describes as numbness and tingling in his right upper extremity. He has not appreciated his face and does not really appreciate his lower extremity either. No loss of balance no confusion dizziness or visual acuity changes. Did have a headache this morning but it is gone now. He is not known to be diabetic. He's blood pressure is well controlled with metoprolol succinate 50 mg daily. Neuro exam is grossly normal. I suspect he may have some mild carpal tunnel syndrome in his right upper extremity to account for his current paresthesias. Plan routine labs will be ordered done - Re-Assessments/Exams Free Text/Narrative Re-Assessment/Exam: 12/23/20 13:27 Hematology reveals a slightly low white count at 4.18. The differential shows 72% neutrophils and 16% lymphocytes on the auto differential. Hemoglobin is 14.0 with hematocrit of 43.9. MCV is slightly elevated at 94.2. Hemoglobin A1c is 5.5 12/23/20 13:50 Chemistry reveals a sodium of 136 and a potassium of 4.2. Chloride is 102 with a bicarb of 29. Anion gap is 9.2. BUN is 16 with a creatinine of 1.0 and a GFR greater than 60. Glucose is 104. Hemoglobin A1c is 5.5. Calcium is 9.2 with a magnesium of 2.1. Liver function normal. C- reactive protein is less than 0.3 total protein 7.3 with an albumin fraction of 4.0 all normal. On reassessment the patient states that he developed more of a tremor and discomfort in his right upper extremity and hand almost suggesting Raynaud's phenomenon. He has not experienced this before. He has no other signs or symptoms of connective tissue disorder at this time. Advised him to adopt a [id number] approach. The course of metoprolol will cause coolness of the hands and feet and if symptoms persist perhaps changed to amlodipine may reduce symptoms of cold extremities. Departure - Departure Time of Disposition: 13:58 Disposition: Home, Self-Care 01 Condition: Fair Clinical Impression: Raynauds phenomenon Qualifiers: Raynaud?s-associated gangrene presence: without gangrene Qualified Code(s): I73.00 - Raynaud's syndrome without gangrene - Discharge Information *PRESCRIPTION DRUG MONITORING PROGRAM REVIEWED*: Not Applicable *COPY OF PRESCRIPTION DRUG MONITORING REPORT IN PATIENT TIM: Not Applicable Instructions: Raynaud Phenomenon Referrals: Maddy Champagne NP [Primary Care Provider] - Forms: ED Department Discharge, ED Return to Work/School Form Additional Instructions: Evaluation in the emergency room today in regards to ill-defined symptoms involving the right upper extremity with no specific numbness tingling but perhaps pain and tremor involving the right hand and weakness in the arm. Neurological exam was completely normal with no evidence of stroke. Blood flow to the hand is also normal. All lab test performed through the emergency room today were all within normal limits as well particular no evidence of diabetes or thyroid dysfunction. Unclear reason for right hand symptoms today. Consider Raynaud's phenomenon which means the blood vessels delivering blood supply to the hand can go into spasm at the wrist and cause numbness tingling weakness and pain in the hand with blanching either causing it to turn blue or white and usually occurs if the hand gets really cold. This may be exacerbated by being on blood pressure medication metoprolol succinate. Therefore symptoms persist I would suggest a change in blood pressure medication to a calcium channel karel such as amlodipine which would prevent this from occurring. Nothing serious identified on today's evaluation. Continue all activity as before. Follow-up with personal care physician if any further problems occur Sepsis Event Note (ED) - Evaluation Sepsis Screening Result: No Definite Risk - Focused Exam Vital Signs: Vital Signs Temp Pulse Resp BP Pulse Ox 12/23/20 12:01 36.4 C 75 16 136/82 98
[2020-12-23 13:16] LABS: HEMOGLOBIN A1C 5.5 %
== END 2020-12-23 14:15 | disposition home or self-care (01) ==
LOC: JD.ED 11:46
DX: I73.00 Raynaud's syndrome without gangrene (principal); I10 Essential (primary) hypertension; E66.9 Obesity, unspecified; Z91.048 Other nonmedicinal substance allergy status; Z88.1 Allergy status to other antibiotic agents; Z88.8 Allergy status to other drugs, medicaments and biological substances; Z68.42 Body mass index [BMI] 45.0-49.9, adult
CPT/HCPCS: 36415; 80053; 83036; 83735; 85025; 86140; 99284

== ENCOUNTER 2022-01-08 14:42 | Emergency (ER) | payer BC ==
[2022-01-08] MEDS ORDERED: Sodium Chloride 0.9% 10 ML Syringe FLUSH PRN (15:08)
[2022-01-08] MEDS ORDERED: Aspirin 81 MG Tab.Chew PO ONE (15:24)
[2022-01-08 16:14] LABS: ESTIMATED GFR 96 mL/min (>60)
[2022-01-08 18:07] VITALS: BP 135/82; PULSE 69
== END 2022-01-08 17:12 | disposition home or self-care (01) ==
LOC: JD.ED 14:42
DX: R07.89 Other chest pain (principal); I10 Essential (primary) hypertension; I44.0 Atrioventricular block, first degree; E66.9 Obesity, unspecified; Z91.048 Other nonmedicinal substance allergy status; Z88.1 Allergy status to other antibiotic agents; Z88.8 Allergy status to other drugs, medicaments and biological substances; Z79.899 Other long term (current) drug therapy
CPT/HCPCS: 36415; 71045; 80053; 83735; 84484; 85025; 85379; 85610; 93005; 99285; A9270; J3490

== ENCOUNTER 2022-08-17 09:35 | Emergency (ER) | payer BC ==
[2022-08-17] MEDS ORDERED: Ondansetron 4 MG/2 ML SDV IVPUSH ONE (10:00)
[2022-08-17] MEDS ORDERED: Loperamide 2 MG Cap PO STA (10:00)
[2022-08-17] MEDS ORDERED: Sodium Chloride 0.9% 1,000 ML IV ONE (10:00)
[2022-08-17 10:33] LABS: HEMATOCRIT 45.9 % (40.1-51.0); HEMOGLOBIN 14.8 gm/dl (13.7-17.5); MEAN CORPUSCULAR HEMOGLOBIN 29.8 pg (25.7-32.2); MEAN CORPUSCULAR HGB CONC 32.2 g/dl (32.2-35.5); MEAN CORPUSCULAR VOLUME 92.4 fl (79.0-92.2); MEAN PLATELET VOLUME 10.9 fl (9.4-12.3); PLATELET COUNT,PLT 166 K/mm3 (163-337); RED BLOOD CELL COUNT 4.97 M/mm3 (4.63-6.08); WHITE BLOOD CELL COUNT,WBC 4.96 K/mm3 (4.23-9.07)
[2022-08-17 10:51] LABS: A/G RATIO 1.1 (1-2); ALANINE AMINOTRANSFERASE,ALT 42 U/L (16-63); ALBUMIN 3.9 g/dl (3.4-5.0); ALKALINE PHOSPHATASE 75 U/L (46-116); ASPARTATE AMNIOTRANSFERASE,AST 26 U/L (15-37); BILIRUBIN TOTAL 0.6 mg/dL (0.2-1.0); BLOOD UREA NITROGEN,BUN 16 mg/dL (7-18); C-REACTIVE PROTEIN <0.2 mg/dL (<1.0); CALCIUM 8.8 mg/dL (8.5-10.1); CARBON DIOXIDE,CO2 24 mEq/L (21-32); CHLORIDE,CL 104 mEq/L (98-107); EST CRCL DRUG DOSING (CG) 92.15 mL/min; ESTIMATED GFR 96 mL/min (>60); GLUCOSE RANDOM 98 mg/dL (70-99); MAGNESIUM 2.1 mg/dL (1.8-2.4); PROTEIN TOTAL,TP 7.6 g/dl (6.4-8.2); SODIUM,NA 138 mEq/L (136-145)
[2022-08-17 11:35] LABS: BAND PERCENT MAN 0 % (0-10); BASOPHILS PERCENT MAN 1 (0.2-1.2); EOSINOPHILS PERCENT MAN 0 % (0.8-7.0); LYMPHOCYTES % ATYPICAL MANUAL 0 %; LYMPHOCYTES PERCENT MAN 19 % (20-40); MONOCYTES PERCENT MAN 2 % (2-10)
[2022-08-17 11:36] LABS: PLATELET COUNT ESTIMATE ADEQUATE
[2022-08-17 12:14] VITALS: BP 159/83; PULSE 63
== END 2022-08-17 11:55 | disposition home or self-care (01) ==
LOC: JD.ED 09:35
DX: A08.4 Viral intestinal infection, unspecified (principal); I10 Essential (primary) hypertension; K21.9 Gastro-esophageal reflux disease without esophagitis; Z91.048 Other nonmedicinal substance allergy status; Z88.1 Allergy status to other antibiotic agents; Z88.8 Allergy status to other drugs, medicaments and biological substances; Z87.891 Personal history of nicotine dependence; Z86.16 Personal history of COVID-19
CPT/HCPCS: 36415; 80053; 83735; 85007; 85027; 86140; 96361; 96374; 99284; A9270; J2405; J7030

== ENCOUNTER 2023-12-31 08:00 | Emergency (ER) | payer BC ==
[2023-12-31 08:56] LABS: BASOPHILS PERCENT AUTO 0.9 % (0.0-1.0); EOSINOPHILS ABSOLUTE AUTO 0.1 K/mm3 (0.0-0.4); EOSINOPHILS PERCENT AUTO 1.8 % (0.0-6.0); HEMOGLOBIN 13.9 gm/dl (14.0-18.0); IMMATURE GRAN ABSOLUTE AUTO 0.02 K/mm3 (0.00-0.05); IMMATURE GRAN PERCENT AUTO 0.5 % (0.0-0.4); LYMPHOCYTES ABSOLUTE AUTO 1.2 K/mm3 (1.0-4.8); LYMPHOCYTES PERCENT AUTO 26.3 % (24.0-44.0); MEAN CORPUSCULAR HEMOGLOBIN 30.1 pg (28.0-32.0); MEAN CORPUSCULAR HGB CONC 33.1 g/dl (32.0-36.0); MEAN CORPUSCULAR VOLUME 90.9 fl (83.0-99.0); MEAN PLATELET VOLUME 10.9 fl (9.4-12.4); MONOCYTES ABSOLUTE AUTO 0.3 K/mm3 (0.0-0.8); MONOCYTES PERCENT AUTO 6.9 % (0.0-8.0); NEUTROPHILS ABSOLUTE AUTO 2.8 K/mm3 (1.8-7.7); NEUTROPHILS PERCENT AUTO 63.6 % (41.0-71.0); PLATELET COUNT,PLT 164 K/mm3 (150-400); RED BLOOD CELL COUNT 4.62 M/mm3 (4.52-5.90); WHITE BLOOD CELL COUNT,WBC 4.37 K/mm3 (3.9-11.3)
[2023-12-31] MEDS: Iopamidol 755 Mg/ML 100 ML Bottle IVPUSH ONE ×2 (09:11)
[2023-12-31] MEDS: Sodium Chloride 0.9% 10 ML Syringe FLUSH PRN ×2 (09:11→09:24)
[2023-12-31 09:16] LABS: A/G RATIO 1.1 (1-2); ALBUMIN 3.8 g/dl (3.4-5.0); ANION GAP 11.8 (5-15); BILIRUBIN TOTAL 0.4 mg/dL (0.2-1.0); BUN/CREATININE RATIO 16.4 (14-18); CALCIUM 8.9 mg/dL (8.5-10.1); CREATININE 1.1 mg/dL (0.7-1.3); EST CRCL DRUG DOSING (CG) 82.05 mL/min; POTASSIUM,K 3.8 mEq/L (3.5-5.1); PROTEIN TOTAL,TP 7.4 g/dl (6.4-8.2)
[2023-12-31] MEDS: HYDROmorphone 0.5 MG/0.5 ML Syringe IVPUSH ONE (09:20)
[2023-12-31 10:31] VITALS: BP 128/68; PULSE 65
== END 2023-12-31 10:13 | disposition home or self-care (01) ==
LOC: JD.ED 08:00
DX: R10.11 Right upper quadrant pain (principal); R91.1 Solitary pulmonary nodule; I10 Essential (primary) hypertension; E66.9 Obesity, unspecified; Z68.43 Body mass index [BMI] 50.0-59.9, adult; Z86.16 Personal history of COVID-19; Z90.49 Acquired absence of other specified parts of digestive tract; Z79.899 Other long term (current) drug therapy; Z88.8 Allergy status to other drugs, medicaments and biological substances; Z88.6 Allergy status to analgesic agent; Z91.018 Allergy to other foods; Z88.9 Allergy status to unspecified drugs, medicaments and biological substances; Z91.048 Other nonmedicinal substance allergy status
CPT/HCPCS: 36415; 71045; 71045-26; 74177; 74177-26; 80053; 83690; 84484; 85025; 93005; 96374; 99284-25; J1171; J3490; Q9967

== ENCOUNTER 2024-09-13 20:54 | Emergency (ER) | payer BC ==
[2024-09-13 21:27] LABS: BASOPHILS ABSOLUTE AUTO 0.0 K/mm3 (0.0-0.2); BASOPHILS PERCENT AUTO 0.7 % (0.0-1.0); EOSINOPHILS ABSOLUTE AUTO 0.1 K/mm3 (0.0-0.4); EOSINOPHILS PERCENT AUTO 1.3 % (0.0-6.0); IMMATURE GRAN ABSOLUTE AUTO 0.02 K/mm3 (0.00-0.05); IMMATURE GRAN PERCENT AUTO 0.3 % (0.0-0.4); LYMPHOCYTES ABSOLUTE AUTO 1.3 K/mm3 (1.0-4.8); LYMPHOCYTES PERCENT AUTO 21.4 % (24.0-44.0); MEAN PLATELET VOLUME 11.1 fl (9.4-12.4); MONOCYTES ABSOLUTE AUTO 0.4 K/mm3 (0.0-0.8); MONOCYTES PERCENT AUTO 6.5 % (0.0-8.0); NEUTROPHILS ABSOLUTE AUTO 4.2 K/mm3 (1.8-7.7); NEUTROPHILS PERCENT AUTO 69.8 % (41.0-71.0); NRBC ABSOLUTE 0.00 (0.00-0.02); NRBC PERCENT 0.0 % (0.0-0.2); PLATELET COUNT,PLT 177 K/mm3 (150-400); RED BLOOD CELL COUNT 4.93 M/mm3 (4.52-5.90); WHITE BLOOD CELL COUNT,WBC 6.04 K/mm3 (3.9-11.3)
[2024-09-13 21:35] LABS: INR 0.99
[2024-09-13 21:36] LABS: PTT,PARTIAL THROMBOPLSTIN TIME 26.5 SECONDS (21.7-31.4)
[2024-09-13 21:45] LABS: A/G RATIO 1.1 (1-2); ALANINE AMINOTRANSFERASE,ALT 65.0 U/L (16-63); ASPARTATE AMNIOTRANSFERASE,AST 31.0 U/L (15-37); BILIRUBIN TOTAL 0.5 mg/dL (0.2-1.0); BLOOD UREA NITROGEN,BUN 13.0 mg/dL (7-18); CARBON DIOXIDE,CO2 28.0 mEq/L (21-32); CHLORIDE,CL 105.0 mEq/L (98-107); CREATININE 1.1 mg/dL (0.7-1.3); EST CRCL DRUG DOSING (CG) 93.08 mL/min; ESTIMATED GFR 84.0 mL/min (>60); GLUCOSE RANDOM 95.0 mg/dL (70-99); POTASSIUM,K 3.8 mEq/L (3.5-5.1); PROTEIN TOTAL,TP 7.8 g/dl (6.4-8.2); SODIUM,NA 138.0 mEq/L (136-145); TROPONIN I HIGH SENSITIVITY 6.0 pg/mL (<=76)
[2024-09-13 22:59] VITALS: BP 144/80; PULSE 86
== END 2024-09-13 22:58 | disposition home or self-care (01) ==
LOC: JD.ED 20:54
DX: R42 Dizziness and giddiness (principal); R07.89 Other chest pain; R06.02 Shortness of breath; E78.00 Pure hypercholesterolemia, unspecified; I10 Essential (primary) hypertension; K21.9 Gastro-esophageal reflux disease without esophagitis; Z86.16 Personal history of COVID-19; Z90.49 Acquired absence of other specified parts of digestive tract; Z91.048 Other nonmedicinal substance allergy status; Z88.8 Allergy status to other drugs, medicaments and biological substances; Z79.899 Other long term (current) drug therapy
CPT/HCPCS: 36415; 71045; 80053; 83735; 83880; 84484; 85025; 85610; 85730; 93005; 96360; 99285; J7030

== ENCOUNTER 2024-11-19 17:59 | Emergency (ER) | payer BC ==
[2024-11-19 18:10] VITALS: BP 138/76; PULSE 73
== END 2024-11-19 19:45 | disposition left against medical advice (07) ==
LOC: JD.ED 17:59
DX: Z53.21 Procedure and treatment not carried out due to patient leaving prior to being seen by health care provider (principal)